=== PATIENT | female | born 2000 | race Caucasian/White ===

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

== ENCOUNTER 2021-01-07 13:01 | Outpatient (RCR) | payer BC ==
[2020-12-10 13:33] VITALS: BP 129/74
[2020-12-17 13:40] VITALS: BP 118/81
[2020-12-24] MEDS: IRON SUCROSE 200 MG/10 ML (VENOFER) VIAL IV SCH (13:19)
[2020-12-24 13:20] VITALS: BP 114/76
[~2021-01-07] VITALS: Ht 165.1 cm; Wt 65.9 kg
[~2021-01-07 13:01] MED LIST changes: -ESCI5TAB12 PO; +ESCI5TAB16 PO; +IRON SUCROSE 200 MG/10 ML (VENOFER) VIAL IV NR; +IRON SUCROSE 200 MG/10 ML (VENOFER) VIAL IV ONE; +NABU-88 PO; -NABU500T PO; +OXC5T PO; -OXYC5TAB96 PO
[2021-01-07] MEDS: IRON SUCROSE 200 MG/10 ML (VENOFER) VIAL IV SCH (13:16)
[2021-01-07 13:45] VITALS: BP 107/72
== END 2021-01-07 13:45 | disposition home or self-care (01) ==
LOC: SDC 13:01
PROVIDERS: ATTEND Family Medicine
DX: D50.8 Other iron deficiency anemias (principal); R53.83 Other fatigue
CPT/HCPCS: 96365

== ENCOUNTER 2021-04-30 09:53 | Outpatient (RCR) | payer BC ==
[2021-04-09] MEDS: IRON SUCROSE 200 MG/10 ML (VENOFER) VIAL IV SCH (10:59)
[2021-04-09 11:40] VITALS: BP 114/82
[2021-04-16] MEDS: IRON SUCROSE 200 MG/10 ML (VENOFER) VIAL IV SCH (10:08)
[2021-04-16 10:11] VITALS: BP 111/73
[2021-04-23] MEDS: IRON SUCROSE 200 MG/10 ML (VENOFER) VIAL IV SCH (10:06)
[2021-04-23 10:35] VITALS: BP 114/78
[~2021-04-30] VITALS: Ht 165.1 cm; Wt 65.9 kg
[~2021-04-30 09:53] MED LIST changes: -IRON SUCROSE 200 MG/10 ML (VENOFER) VIAL IV NR; -IRON SUCROSE 200 MG/10 ML (VENOFER) VIAL IV ONE; -NABU-88 PO; +NABU500T8 PO
[2021-04-30] MEDS: IRON SUCROSE 200 MG/10 ML (VENOFER) VIAL IV SCH (10:19)
[2021-04-30 10:45] VITALS: BP 108/74
== END 2021-04-30 10:45 | disposition home or self-care (01) ==
LOC: SDC 09:53
PROVIDERS: ATTEND Family Medicine
DX: D50.8 Other iron deficiency anemias (principal); N94.6 Dysmenorrhea, unspecified
CPT/HCPCS: 96365

== ENCOUNTER → 2021-05-26 | Outpatient (CLI) | payer BC ==
--- NOTE | 2021-05-26 10:48 | Diagnostic Imaging Report ---
INDICATION: Foot pain. 3 views were obtained. FINDINGS: The alignment is normal. There is no fracture or dislocation. Soft tissues are unremarkable. IMPRESSION: No acute fracture or dislocation. Dictated by: Dictated on workstation # [id number]
--- NOTE | 2021-05-26 10:50 | Diagnostic Imaging Report ---
Left ankle at 10:09. Indication: Ankle pain 3 views were obtained. There are no prior studies available for comparison. There is no fracture, dislocation or acute bony abnormality evident. The ankle mortise is not widened and the talar dome is smooth. The soft tissues are unremarkable. Impression: There is no evidence for an acute bony abnormality. Dictated by: Dictated on workstation # [id number]
== END ==
LOC: RAD 09:57
PROVIDERS: ATTEND Nurse Practitioner Family
DX: M25.572 Pain in left ankle and joints of left foot (principal)
CPT/HCPCS: 73610; 73630

== ENCOUNTER 2022-02-12 09:56 | Outpatient (RCR) | payer BC ==
[~2022-02-12] VITALS: Ht 162.6 cm; Wt 62.3 kg
[2022-02-12 10:00] VITALS: BP 109/72
[2022-02-12] MEDS ORDERED: IRON SUCROSE 200 MG/10 ML (VENOFER) VIAL IV ONE (10:15)
[2022-02-12] MEDS ORDERED: VENL150C PO (11:22)
[2022-02-12] MEDS ORDERED: BIRTH CONTROL PILL (13:04)
== END 2022-02-13 ==
LOC: SDC 09:56
PROVIDERS: ATTEND Family Medicine
DX: D50.8 Other iron deficiency anemias (principal); N94.6 Dysmenorrhea, unspecified
CPT/HCPCS: 96365

== ENCOUNTER 2022-03-04 13:53 | Outpatient (RCR) | payer BC ==
[2022-02-18 15:45] VITALS: BP 134/89
[2022-02-25] MEDS: NS IV SCH (14:27)
[2022-02-25] MEDS: IRON SUCROSE IV SCH (14:27)
[2022-02-25 14:28] VITALS: BP 113/85
[~2022-03-04] VITALS: Ht 162.6 cm; Wt 62.3 kg
[~2022-03-04 13:53] MED LIST changes: +BIRTH CONTROL PILL; +IRON SUCROSE 200 MG/10 ML (VENOFER) VIAL IV SCH; +IRON SUCROSE IV NR; +NS IV NR; +VENL150C3 PO
[2022-03-04 13:55] VITALS: BP 122/74
[2022-03-04] MEDS: IRON SUCROSE IV SCH (14:10)
[2022-03-04] MEDS: NS IV SCH (14:10)
== END 2022-03-15 | disposition home or self-care (01) ==
LOC: SDC 13:53
PROVIDERS: ATTEND Family Medicine
DX: D50.8 Other iron deficiency anemias (principal); R53.83 Other fatigue; N94.6 Dysmenorrhea, unspecified
CPT/HCPCS: 96365

== ENCOUNTER → 2022-03-21 | Outpatient (CLI) | payer BC ==
[~2022-03-21] VITALS: Ht 162.6 cm; Wt 62.3 kg
[~2022-03-21] MED LIST changes: -IRON SUCROSE 200 MG/10 ML (VENOFER) VIAL IV SCH; -IRON SUCROSE IV NR; -NS IV NR
== END | disposition home or self-care (01) ==
LOC: PREOP 14:23
PROVIDERS: ATTEND Surgery
DX: Z01.818 Encounter for other preprocedural examination (principal)

== ENCOUNTER 2022-03-24 10:15 | Day surgery (SDC) | payer BC ==
[~2022-03-24] VITALS: Ht 162.6 cm; Wt 62.3 kg
[2022-03-24] MEDS ORDERED: LACTATED RINGERS 1,000 ML IV STA (10:18)
--- NOTE | 2022-03-24 10:29 | Progress Note-Pre Operative ---
Pre-Operative Progress Note H&P Reviewed The H&P was reviewed, patient examined and no changes noted. Time Seen by Provider: 10: Date H&P Reviewed: March 24, 2022 Time H&P Reviewed: : Pre-Operative Diagnosis: rectal bleed, hematemesis STEPAN COATS DO March 24, 2022 10:29
[2022-03-24] MEDS ORDERED: HURRICAINE EXT TUBE (BENZOCAINE) XX PRN (10:30)
[2022-03-24 10:41] VITALS: BP 115/83
[2022-03-24] MEDS ORDERED: MIDAZOLAM 2 MG/2 ML (VERSED) VIAL ONE (11:05)
[2022-03-24] MEDS ORDERED: PROPOFOL INJECTION 50 ML IV ONE (11:06)
[2022-03-24 11:35] VITALS: BP 121/66
--- NOTE | 2022-03-24 11:38 | Progress Note-Post Operative ---
Post-Operative Progess Note Surgeon (s)/Internet Designer (s) Surgeon STEPAN COATS DO Internet Designer: none Pre-Operative Diagnosis rectal bleed, hematemesis Post-Operative Diagnosis Gastritis Esophagitis Proctitis int hemorrhoids anal fissure Procedure & Operative Findings Date of Procedure 03/24/22 Procedure Performed/Findings EGD with bx Colon with cold bx PROCEDURE NOTE: After informed consent was obtained, the patient was brought to the endoscopy suite, placed in bed in left lateral decubitus position. She was administered IV sedation by the FIRMWARE TEST ENGINEER who then monitored vitals the entire time, heart rate, blood pressure and pulse ox and the scope was inserted down the mouth through the esophagus into the stomach. On the way down, noted some mild esophagitis, took a picture, pushed into the stomach, pushed past the antrum into the duodenum. Duodenum looked good. Pulled back and did a biopsy of antrum, then retroflexed the scope but did not see a hiatal hernia, took a picture and then pulled the scope into the GE junction. Then did a biopsy of the GE junction. Pushed the scope back into the stomach, suctioned all the air out of the stomach. At this point pulled the scope up the esophagus and out the mouth. Switched camera, switched gloves, went down below, started the colonoscopy. Pushed all the way into about 140 cm to get all the way to cecum, took a picture of the appendiceal orifice and noted the ileocecal valve. Slowly withdrew the scope, insufflating to look circumferentially at the archer starting in the cecum, up the ascending colon to the hepatic flexure, then down the transverse colon, splenic flexure, into the descending colon, down into the sigmoid and finally into the rectum. It appeared a little inflamed here and did a cold biopsy. Retroflexed in the rectal vault, saw some very minimal internal hemorrhoids and took a picture of them. On the way out it looked like she may have had a small anal fissure. The patient tolerated the procedure and she recovered in the endoscopy suite. Recommended for repeat colonoscopy at 46 years old. Anesthesia Type IV sedation by anesthesia Estimated Blood Loss Estimated blood loss (mL): scant Specimens/Packing Specimens Removed antral bx GE jxn bx rectal bx STEPAN COATS DO March 24, 2022 11:38
--- NOTE | 2022-03-24 11:39 | Endoscopy Discharge Instruct ---
Endo Procedure/Findings Findings 1.: Gastritis 2.: Other Findings (Esophagitis) 3.: Other Findings (Proctitis) 4.: Internal Hemorrhoids, Other Findings (anal fissure) Discharge Instructions - Activity: You might feel a little sleepy until tomorrow. This is due to the medicine you received to relax you. Until tomorrow, you should: NOT drive a car, operate machinery or power tools. NOT drink any alcoholic beverages. NOT make any important decisions or sign importortant papers. Do not return to work until tomorrow, unless otherwise instructed. Resume previous activities tomorrow. Diet: Start by taking liquids. If you tolerate liquids, advance to solid food. 1.: EGD in 3 years 2.: Other Recommendation (colonoscopy at 46) Notify Physician - If you experience excessive bleeding, unusual abdominal pain, fever, or chest pain, contact your doctor immediately. STEPAN COATS DO March 24, 2022 11:39
--- NOTE | 2022-03-24 11:39 | Anesthesia-General Post-Op ---
MAC Patient Condition Mental Status/LOC: Same as Preop Cardiovascular: Satisfactory Nausea/Vomiting: Absent Respiratory: Satisfactory Pain: Controlled Complications: Absent Post Op Complications Complications None Follow Up Care/Instructions Patient Instructions None needed. Anesthesiology Discharge Order Discharge Order Patient is doing well, no complaints, stable vital signs, no apparent adverse anesthesia problems. EDNA OLIVAS DO March 24, 2022 11:39
[2022-03-24 11:55] VITALS: BP 105/75
[2022-03-24 12:07] VITALS: BP 105/75
== END 2022-03-24 12:07 | disposition home or self-care (01) ==
LOC: ENDO 10:15
PROVIDERS: ATTEND Surgery
DX: K29.51 Unspecified chronic gastritis with bleeding (principal); K20.91 Esophagitis, unspecified with bleeding; K62.89 Other specified diseases of anus and rectum; K60.2 Anal fissure, unspecified; K64.8 Other hemorrhoids; K62.1 Rectal polyp; D64.9 Anemia, unspecified; Z79.899 Other long term (current) drug therapy
CPT/HCPCS: 84703

== ENCOUNTER 2022-08-31 02:55 | Emergency (ER) | payer BC ==
[~2022-08-31 02:55] MED LIST changes: -ETON68IM3 SQ; +ETON68IM4 SQ
[2022-08-31] MEDS ORDERED: LACTATED RINGERS 1,000 ML IV ONE (03:15)
[2022-08-31 03:25] LABS: BILIRUBIN,URINE NEGATIVE (NEGATIVE); CLARITY,URINE CLEAR; COLOR,URINE OTHER; GLUCOSE, URINE (UA) NEGATIVE (NEGATIVE); KETONES,URINE NEGATIVE (NEGATIVE); LEUKOCYTE ESTERASE ,URINE NEGATIVE (NEGATIVE); NITRITE,URINE NEGATIVE (NEGATIVE); PH,URINE 6.5 (5-9); PROTEIN,URINE NEGATIVE (NEGATIVE)
[2022-08-31 03:33] LABS: BASOPHILS % (AUTO) 0 % (0-10); EOSINOPHILS % (AUTO) 0 % (0-10); HEMATOCRIT 37 % (35-52); LYMPHOCYTES # (AUTO) 1.2 10^3/uL (1.0-4.0); LYMPHOCYTES % (AUTO) 16 % (12-44); MEAN CORPUSCULAR HEMOGLOBIN 31 pg (25-34); MEAN CORPUSCULAR HGB CONC 35 g/dL (32-36); MEAN CORPUSCULAR VOLUME 89 fL (80-99); MEAN PLATELET VOLUME 9.7 fL (9.0-12.2); MONOCYTES # (AUTO) 0.5 10^3/uL (0.0-1.0); MONOCYTES % (AUTO) 7 % (0-12); NEUTROPHILS # (AUTO) 5.8 10^3/uL (1.8-7.8); NEUTROPHILS % (AUTO) 77 % (42-75); PLATELET COUNT 230 10^3/uL (130-400); WHITE BLOOD COUNT 7.6 10^3/uL (4.3-11.0)
[2022-08-31 03:38] LABS: BACTERIA,URINE TRACE /HPF; SQUAMOUS EPITHELIAL CELL,UR RARE /HPF; WBC,URINE RARE /HPF
[2022-08-31 03:40] LABS: AMPHETAMINE SCREEN, URINE NEGATIVE (NEGATIVE); BARBITURATE SCREEN URINE NEGATIVE (NEGATIVE); BENZODIAZEPINES SCREEN URINE NEGATIVE (NEGATIVE); CANNABINOID SCREEN, URINE NEGATIVE (NEGATIVE); COCAINE SCREEN URINE NEGATIVE (NEGATIVE); METHADONE STAT NEGATIVE (NEGATIVE); OPIATE SCREEN URINE NEGATIVE (NEGATIVE); OXYCODONE STAT NEGATIVE (NEGATIVE); PROPOXYPHENE STAT NEGATIVE (NEGATIVE); TRICYCLIC ANTIDEPRESSANTS SCRE NEGATIVE (NEGATIVE)
[2022-08-31 03:43] LABS: ALBUMIN 4.4 GM/DL (3.2-4.5); CHLORIDE 107 MMOL/L (98-107); POTASSIUM 3.4 MMOL/L (3.6-5.0); SODIUM 139 MMOL/L (135-145)
[2022-08-31 03:44] LABS: CALCIUM 9.2 MG/DL (8.5-10.1)
[2022-08-31 03:45] LABS: AMYLASE 33 U/L (25-125)
[2022-08-31 03:46] LABS: GLUCOSE 81 MG/DL (70-105); PROTHROMBIN TIME PATIENT 13.4 SEC (12.2-14.7); TOTAL PROTEIN 7.2 GM/DL (6.4-8.2)
[2022-08-31 03:47] LABS: BILIRUBIN,TOTAL 0.8 MG/DL (0.1-1.0); CARBON DIOXIDE 20 MMOL/L (21-32)
[2022-08-31 03:49] LABS: ALKALINE PHOSPHATASE 45 U/L (40-136); CREATININE SERUM 0.69 MG/DL (0.60-1.30); GFR ESTIMATED 127
[2022-08-31 03:51] LABS: ACETAMINOPHEN < 10 UG/ML (10-30); BUN/CREATININE RATIO 7
[2022-08-31 03:52] LABS: ALANINE AMINOTRANSFERASE 12 U/L (0-55); MAGNESIUM 2.6 MG/DL (1.6-2.4)
[2022-08-31 03:53] LABS: CREATINE KINASE 47 U/L (29-168); LIPASE 25 U/L (8-78)
[2022-08-31 04:00] LABS: CREATINE KINASE MB 0.5 NG/ML (<6.6)
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
[2022-08-31 05:37] VITALS: BP 121/85
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
== END 2022-08-31 05:52 | disposition home or self-care (01) ==
LOC: EDUNIT# 02:55 → ER 02:56
DX: F10.129 Alcohol abuse with intoxication, unspecified (principal); V48.5XXA Car driver injured in noncollision transport accident in traffic accident, initial encounter; Y92.410 Unspecified street and highway as the place of occurrence of the external cause
CPT/HCPCS: 70450; 71045; 71250; 72125; 72128; 72131; 72170; 74176; 80053; 80306; 81000; 82150; 82550; 82553; 83690; 83735; 83874; 84484; 84703; 85025; 85610; 85730; 93005; 93041; 99284; G0480 ×2; 36415; 80320; 80329

== ENCOUNTER 2023-03-12 11:04 | Outpatient (RCR) | payer BC ==
[2023-03-05 11:25] VITALS: BP 113/64
[2023-03-05] MEDS: IRON SUCROSE 200 MG/10 ML (VENOFER) VIAL IV SCH (11:38)
[~2023-03-12] VITALS: Ht 165.1 cm; Wt 66.0 kg
[2023-03-12] MEDS: IRON SUCROSE 200 MG/10 ML (VENOFER) VIAL IV SCH (11:11)
[2023-03-12 11:18] VITALS: BP 111/87
== END 2023-03-15 | disposition home or self-care (01) ==
LOC: SDC 11:04
PROVIDERS: ATTEND Family Medicine
DX: D50.8 Other iron deficiency anemias (principal); N94.6 Dysmenorrhea, unspecified
CPT/HCPCS: 96365

== ENCOUNTER 2023-03-19 10:14 | Outpatient (RCR) | payer BC ==
[~2023-03-19] VITALS: Ht 165.1 cm; Wt 66.0 kg
[2023-03-19] MEDS: IRON SUCROSE 200 MG/10 ML (VENOFER) VIAL IV ONE ×2 (10:31→10:36)
[2023-03-19 10:32] VITALS: BP 117/87
[2023-03-19] MEDS ORDERED: IRON SUCROSE 200 MG/10 ML (VENOFER) VIAL IV SCH (10:45)
== END 2023-04-15 | disposition home or self-care (01) ==
LOC: SDC 10:14
PROVIDERS: ATTEND Family Medicine
DX: D50.8 Other iron deficiency anemias (principal); N94.6 Dysmenorrhea, unspecified; R53.83 Other fatigue
CPT/HCPCS: 96365

== ENCOUNTER 2023-06-23 05:32 | Outpatient (CLI) | payer BC ==
[~2023-06-23] VITALS: Ht 165.1 cm; Wt 66.2 kg
[2023-06-23] MEDS ORDERED: VENL150T PO (14:46)
[2023-06-23] MEDS ORDERED: ALB0.5V INH (14:46)
== END 2023-06-23 14:55 | disposition home or self-care (01) ==
LOC: PREOP 05:32
PROVIDERS: ATTEND Obstetrics & Gynecology
DX: Z01.818 Encounter for other preprocedural examination (principal)

== ENCOUNTER 2023-06-30 06:36 | Day surgery (SDC) | payer BC ==
[2023-06-30] VITALS (11 sets, daily range): BP systolic 113–143; BP diastolic 70–95
[~2023-06-30] VITALS: Ht 165.1 cm; Wt 66.2 kg
[~2023-06-30 06:36] MED LIST changes: +ALB0.5V INH; +VENL150T PO
[2023-06-30] MEDS: LACTATED RINGERS 1,000 ML IV PRN ×2 (07:02→08:46)
[2023-06-30] MEDS ORDERED: ONDANSETRON 4 MG/2 ML (SDV) Z0FRAN ONE (07:06)
[2023-06-30] MEDS ORDERED: proPOfol 200 MG/20 ML (DIPRIVAN) VIAL IV ONE (07:06)
[2023-06-30] MEDS ORDERED: MIDAZOLAM INJ 2 MG/2 ML VIAL ONE (07:06)
[2023-06-30] MEDS ORDERED: LIDOCAINE PF 2% 5 ML VIAL ONE (07:06)
[2023-06-30] MEDS ORDERED: fentaNYL INJECTION 100 MCG/2 ML VIAL ONE ×2 (07:06→09:20)
[2023-06-30 07:13] LABS: BASOPHILS % (AUTO) 0 % (0-10); EOSINOPHILS # (AUTO) 0.1 10^3/uL (0.0-0.3); EOSINOPHILS % (AUTO) 2 % (0-10); HEMATOCRIT 39 % (35-52); HEMOGLOBIN 12.9 g/dL (11.5-16.0); LYMPHOCYTES # (AUTO) 1.4 10^3/uL (1.0-4.0); LYMPHOCYTES % (AUTO) 31 % (12-44); MEAN CORPUSCULAR HEMOGLOBIN 31 pg (25-34); MEAN CORPUSCULAR HGB CONC 33 g/dL (32-36); MEAN CORPUSCULAR VOLUME 93 fL (80-99); MEAN PLATELET VOLUME 9.9 fL (9.0-12.2); MONOCYTES # (AUTO) 0.5 10^3/uL (0.0-1.0); MONOCYTES % (AUTO) 11 % (0-12); NEUTROPHILS # (AUTO) 2.5 10^3/uL (1.8-7.8); NEUTROPHILS % (AUTO) 56 % (42-75); PLATELET COUNT 207 10^3/uL (130-400); WHITE BLOOD COUNT 4.6 10^3/uL (4.3-11.0)
[2023-06-30] MEDS ORDERED: BUPIVACAINE 0.25% 30 ML VIAL ONE (07:18)
--- NOTE | 2023-06-30 07:28 | Progress Note-Pre Operative ---
Pre-Operative Progress Note Date of Available H&P: Jun 30, 2023 Date H&P Reviewed: Jun 30, 2023 Time H&P Reviewed: 07:15 History & Physical: H&P Reviewed, Patient Examed, No changes noted Pre-Operative Diagnosis: CPP, Endometriosis CALEB LOUIS DO Jun 30, 2023 07:28
--- NOTE | 2023-06-30 07:29 | Discharge Inst-Women's Service ---
Discharge Inst-Women's Serv Depart Medication/Instructions New, Converted or Re-Newed RX: Transmitted to Pharmacy Problems Reviewed?: Yes Consults/Follow Up Additional Follow Up: Yes Orders/Referrals Dr. Orellana in 7-10 days Activity Activity: Activity as Tolerated Driving Instructions: No Driving for 1 Week NO SMOKING: NO SMOKING Nothing Inside Vagina: No Douching, No [place], No Tampons Diet Discharge Diet: No Restrictions Symptoms to Report to : Bleeding Excessive, Pain Increased, Fever Over 101 Degrees F, Vaginal Bleeding Increase, Questions/Concerns For Any Problems or Questions: Contact Your Physician Skin/Wound Care Infection Signs and Symptoms: Increased Redness, Foul Odor of Wound, Increased Drainage, Skin Itchy or Has a Rash, Increased Swelling, Temperature Above 101 F Operative Area Clean and Dry: Keep Incision Clean/Dry Stitches/Faustino/Dermabond: Dermabond, Care of Stitches Bathing Instructions: CALEB Parkinson DO Jun 30, 2023 07:29
[2023-06-30] MEDS ORDERED: ONDANSETRON 4 MG/2 ML (SDV) Z0FRAN IVP PRN ×2 (07:30→08:45)
[2023-06-30] MEDS ORDERED: D5 LR 1,000 ML IV SOLN 1,000 ML IV SCH (07:30)
[2023-06-30] MEDS ORDERED: IBUP-1773 PO (07:30)
[2023-06-30] MEDS ORDERED: ACHD5005 PO (07:30)
[2023-06-30] MEDS ORDERED: HYDROcodone/ACETAMINOPHEN 5 MG/325 MG TABLET PO PRN (07:30)
[2023-06-30] MEDS ORDERED: KETOROLAC INJ 30 MG/ML VIAL IVP ONE (07:30)
[2023-06-30] MEDS ORDERED: ROCURONIUM 50 MG/5 ML (ZEMURON) VIAL IV ONE (07:51)
[2023-06-30] MEDS ORDERED: SEVOFLURANE (ULTANE) 15 ML INHAL SOLN ONE ×2 (08:15→08:34)
[2023-06-30] MEDS ORDERED: SUGAMMADEX 500 MG/5 ML VIAL (BRIDION) IV ONE (08:34)
[2023-06-30] MEDS ORDERED: fentaNYL INJECTION 100 MCG/2 ML VIAL IVP ONE (08:45)
[2023-06-30] MEDS ORDERED: morphine INJ 10 MG/ML 1ML (SYR OR VIAL) IVP ONE (08:45)
[2023-06-30] MEDS ORDERED: MEPERIDINE INJ 50 MG/ML VIAL IVP ONE (08:45)
--- NOTE | 2023-06-30 08:45 | Anesthesia-General Post-Op ---
General Patient Condition Mental Status/LOC: Same as Preop Cardiovascular: Satisfactory Nausea/Vomiting: Absent Respiratory: Satisfactory Pain: Controlled Complications: Absent Post Op Complications Complications None Follow Up Care/Instructions Patient Instructions None needed. Anesthesia/Patient Condition Patient Condition Patient is doing well, no complaints, stable vital signs, no apparent adverse anesthesia problems. No complications reported per nursing. IVETT MORENO CRNA Jun 30, 2023 08:45
[2023-06-30] MEDS ORDERED: BUPIVACAINE 0.25% 30 ML VIAL INJ ONE (08:47)
[2023-06-30] MEDS ORDERED: morphine INJ 10 MG/ML 1ML (SYR OR VIAL) ONE (09:08)
--- NOTE | 2023-06-30 14:04 | OPERATIVE REPORT ---
DATE OF SERVICE: 06/30/2023 PREOPERATIVE DIAGNOSES: 1. A 22-year-old female with chronic pelvic pain. 2. History of endometriosis on laparoscopy. POSTOPERATIVE DIAGNOSES: 1. A 22-year-old female with chronic pelvic pain. 2. History of endometriosis on laparoscopy. PROCEDURE: Operative laparoscopy with cauterization of endometriosis implants of the pelvic peritoneum. SURGEON: Caleb Louis DO ANESTHESIA: General endotracheal. ESTIMATED BLOOD LOSS: Minimal. URINE OUTPUT: 300 mL clear at the end of the procedure. FLUIDS: 1000 mL lactated Ringer's solution. FINDINGS: Grossly normal-appearing external female genitalia. Grossly normal appearing uterus, bilateral fallopian tubes and ovaries with endometriosis implants noted on the left uterosacral ligament and posterior cul-de-sac. SPECIMEN SENT: None. INDICATIONS FOR PROCEDURE: This 22-year-old female patient who had sought care in my office for ongoing issues with chronic pelvic pain. She had seen my partner, Dr. Quiroz in the past, who had more recently moved away and she converted her care over to my care. She had been on continuous oral contraceptive pill. She had been on GnRH antagonist as well as an IUD, all without any relief in her pain. Her pain slowly came back after her last laparoscopic procedure that was diagnostic. I discussed with the patient proceeding with another laparoscopy. Risks of the procedure were discussed with the patient in detail and she was agreeable to proceed. Consent was obtained in the preoperative area and the patient was taken to the operating room. OPERATIVE REPORT IN DETAIL: Once in the operating room, anesthesia was administered and found to be adequate. She was placed in the dorsal lithotomy position, prepped and draped in normal sterile fashion. A timeout was performed. Boyd catheter was placed using sterile technique. A Graves speculum inserted to the patient's vagina, which was visualized. Cervix was grasped at 12 o'clock position using a long Allis clamp. I then placed a [employer] uterine manipulator to a depth of 8 cm deploying the balloon within the uterus. I removed all the other instruments from the patient's vagina, performed change of gloves. I turned my attention to the abdomen where subcostally at the midclavicular line, I introduced the Veress needle through the skin until trocar placement was confirmed using saline drop test. An opening pressure of 5 mmHg was noted. I proceeded with CO2 insufflation to max pressure of 15 mmHg, at which point I placed a 5 mm infraumbilical trocar. This was done by making a 5 mm incision with a knife and direct trocar under direct visualization laparoscope. Once this was in place, I am able to confirm intraperitoneal placement using the laparoscope itself. There is no evidence of damage from entry site. A brief scan of the upper abdominal anatomy appears to be grossly normal. The Veress was removed at that point without any evidence of damage from the Veress entry site. I then had the patient placed in steep Trendelenburg where I am able to visualize all my pelvic anatomy as defined in my findings above. I placed suprapubic 5 mm trocar was placed under direct visualization laparoscope. Once this was in place, I am able to use Hook cautery to cauterize the areas of endometriosis. I mentioned that was on the left uterosacral ligament and posterior cul-de-sac. This was done with care to not cauterize too deep into the tissue and to just destroy the tissue that was on the surface, after which there was no active bleeding noted from any of my dissection planes. A brief scan of the rest of the pelvic anatomy appears to be grossly normal. I then copiously irrigated the pelvis using normal saline. Once again dissected from any of my dissection planes. The patient was taken out of steep Trendelenburg where I removed the suprapubic trocar under direct visualization laparoscope. The infraumbilical trocars left in place to release the remainder of insufflation and to introduce 10 mL of 0.25% Marcaine in the peritoneal cavity for postoperative pain management. I then removed this trocar as well. The skin reapproximated using Dermabond. Band-Aids were placed over the incisions. Boyd catheter was removed at the end of the procedure and so was the Kronner uterine manipulator. The patient tolerated the procedure well and was taken to recovery area in stable condition. Lap and sponge counts were correct at the end of the procedure. Instrument counts correct as well. Job ID: [id number] DocumentID: [id number] Dictated Date: 06/30/2023 09:21:43 Enrollment Management Manager Date: 06/30/2023 14:03:00 Dictated By: CALEB LOUIS DO
== END 2023-06-30 10:45 | disposition home or self-care (01) ==
LOC: SDC 06:36
PROVIDERS: ATTEND Obstetrics & Gynecology
DX: N80.9 Endometriosis, unspecified (principal); G89.29 Other chronic pain; R10.2 Pelvic and perineal pain; N93.9 Abnormal uterine and vaginal bleeding, unspecified
CPT/HCPCS: 36415; 84703; 85025; 86850; 86900; 86901; 87081